=== PATIENT | female | born 1935 | race Caucasian/White ===

== ENCOUNTER 2017-03-02 17:21 | Emergency (ER) | payer OTHER ==
[~2017-03-02] VITALS: Ht 165.1 cm; Wt 72.6 kg
--- NOTE | ~2017-03-02 | EKG ---
[address] [address] ELECTROCARDIOGRAM REPORT Name: HERMAN BECK Room #: DEP Aleks#: [id number] Admission: 03/02/17 Attend Phys: Discharge: 03/02/17 Date of : 35 Report #: [id number] THIS REPORT FOR: //name// [facility] ED Test Date: 2017-03-02 Test Time: 17:29:05 Pat Name: HERMAN BECK Department: Room: Gender: F [employer]: DANIELITO : 1935 Requested By: Phi Rai Order Number: [id number] MD: Jonel Sanders Measurements Intervals [place] Rate: 83 P: WI: QRS: 59 QRSD: 90 T: 31 QT: 374 QTc: 440 Interpretive Statements Normal sinus rhythm No previous ECG available for comparison Electronically Signed On 03-03-2017 7:57:28 CDT by Jonel Sanders [email or web address] <ELECTRONICALLY SIGNED> By: Jonel Sanders MD, [facility] 03/03/17 0757 1729 1729 Jonel Sanders MD, FACC /EPI
[2017-03-02] MEDS ORDERED: ASPIR 8181 MG PO (17:29)
[2017-03-02] MEDS ORDERED: DEPAKOTE 250MG250 M1 PO (17:29)
[2017-03-02] MEDS ORDERED: ZESTRIL20 MG PO (17:29)
[2017-03-02] MEDS ORDERED: AMLODIPINE BESY10 MG PO (17:29)
[2017-03-02] MEDS ORDERED: NAMENDA 10 MG T10 MG PO (17:30)
[2017-03-02] MEDS ORDERED: VITAMIN D 5050000 I1 PO (17:31)
[2017-03-02] MEDS ORDERED: ZOLOFT50 MG PO (17:31)
[2017-03-02 17:40] LABS: ABSOLUTE NEUTROPHILS 5.3 thou/uL (1.4-8.2); BASOPHILS 0.4 % (0.0-2.0); HEMATOCRIT 41.3 % (37.0-47.0); HEMOGLOBIN 13.8 gm/dL (12.0-15.0); LYMPHOCYTES 16.6 % (24.0-44.0); MCH 31.5 pg (26.0-34.0); MCHC 33.4 g/dL (28.0-37.0); MCV 94.3 fL (80.0-100.0); MONOCYTES 10.2 % (1.0-8.0); PLATELET COUNT 108 thou/uL (150-400); POLYS 70.8 % (36.0-66.0); RBC 4.37 mil/uL (4.20-5.00); RDW 13.6 % (10.5-14.5); WBC 7.5 thou/uL (4.0-11.0)
[2017-03-02 17:41] LABS: MANUAL DIFF NO
[2017-03-02 17:45] LABS: ANION GAP 7 mmol/L (7-16); BUN 19 mg/dL (7-18); CALCIUM 9.3 mg/dL (8.5-10.1); CHLORIDE 106 mmol/L (98-107); CO2 28 mmol/L (21-32); CREATININE 0.9 mg/dL (0.6-1.0); GLUCOSE 105 mg/dL (74-106); POTASSIUM 4.2 mmol/L (3.5-5.1); SODIUM 141 mmol/L (136-145)
[2017-03-02 17:52] LABS: ALBUMIN 3.4 g/dL (3.4-5.0); ALKALINE PHOSPHATASE 59 U/L (46-116); DIRECT BILIRUBIN 0.1 mg/dL (<0.1-0.3); SGOT 35 U/L (15-37); SGPT 35 U/L (30-65); TOTAL BILIRUBIN 0.6 mg/dL (<0.1-1.0); TOTAL PROTEIN 6.4 g/dL (6.4-8.2); TROPONIN-I < 0.04 ng/mL (<0.04-0.07)
[2017-03-02 17:57] LABS: URINE BILIRUBIN NEGATIVE (Negative); URINE BLOOD TRACE (Negative); URINE COLOR YELLOW; URINE GLUCOSE-RANDOM* NEGATIVE (Negative); URINE KETONES 1+ (Negative); URINE NITRITE POSITIVE (Negative); URINE PROTEIN (DIPSTICK) TRACE (Negative); URINE UROBILINOGEN 0.2 E.U./dl (0.2-1.0)
[2017-03-02 18:09] LABS: CASTS None Seen /LPF (None Seen); SQUAMOUS 0-3 Few /LPF (0-3); URINE WBC >25 Many /HPF (0-5)
[2017-03-02 18:10] LABS: BACTERIA >30 Many /HPF (None Seen); CRYSTALS None Seen /LPF (None Seen); URINE RBC 0-2 Rare /HPF (0-2); WBC CLUMPS Few (None Seen)
[2017-03-02] MEDS ORDERED: CIPRO500 MG PO (18:16)
[2017-03-02 20:34] VITALS: BP 141/68
== END 2017-03-02 20:36 | disposition home or self-care (01) ==
LOC: ER 17:21
PROVIDERS: Nurse Practitioner
DX: N39.0 Urinary tract infection, site not specified (principal); I10 Essential (primary) hypertension; F03.90 Unspecified dementia, unspecified severity, without behavioral disturbance, psychotic disturbance, mood disturbance, and anxiety

== ENCOUNTER 2018-05-07 12:35 | Inpatient (IN) | payer OTHER ==
[~2018-05-07] VITALS: Ht 165.1 cm; Wt 79.4 kg
--- NOTE | ~2018-05-07 | EKG ---
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
[2018-05-07 12:35] VITALS: BP 121/67
[~2018-05-07 12:35] MED LIST: AMLODIPINE BESY10 MG PO; ASPIR 8181 MG PO; ATIVAN0.5 M1 PO; BUSPIRONE HCL10 MG PO; CALCIUM 600 +1 EAC1 PO; CIPRO500 MG PO; DEPAKOTE 250MG250 M1 PO; DEPAKOTE ER500 MG PO; NAMENDA 10 MG T10 MG PO; REMERON15 MG PO; TRAMADOL 50 MG50 MG PO; VITAMIN D 5050000 I1 PO; ZESTRIL20 MG PO; ZOLOFT50 MG PO
[2018-05-07 13:28] LABS: BASOPHILS 0.2 % (0.0-2.0); EOSINOPHILS 0.5 % (0.0-3.0); HEMATOCRIT 43.9 % (37.0-47.0); HEMOGLOBIN 14.7 gm/dL (12.0-15.0); MCH 32.6 pg (26.0-34.0); MCHC 33.4 g/dL (28.0-37.0); MCV 97.5 fL (80.0-100.0); PLATELET COUNT 160 thou/uL (150-400); POLYS 81.3 % (36.0-66.0); RBC 4.51 mil/uL (4.20-5.00); RDW 13.1 % (10.5-14.5); WBC 9.8 thou/uL (4.0-11.0)
[2018-05-07 13:35] LABS: CALCIUM 9.6 mg/dL (8.5-10.1); POTASSIUM 4.8 mmol/L (3.5-5.1)
[2018-05-07 14:23] LABS: URINE BLOOD NEGATIVE (Negative); URINE CLARITY CLEAR; URINE COLOR YELLOW; URINE GLUCOSE-RANDOM* NEGATIVE (Negative); URINE KETONES NEGATIVE (Negative); URINE LEUKOCYTES-REFLEX NEGATIVE (Negative); URINE NITRITE-REFLEX NEGATIVE (Negative); URINE PROTEIN (DIPSTICK) NEGATIVE (Negative); URINE SPECIFIC GRAVITY >= 1.030 (1.005-1.035); URINE UROBILINOGEN 0.2 E.U./dl (0.2-1.0)
[2018-05-07 14:25] LABS: ICTOTEST (BILI CONFIRMATORY) Negative (Negative); URINE BILIRUBIN NEGATIVE (Negative)
[2018-05-07 14:31] LABS: AMP/METHAMP Negative (Negative); BARBITURATES Negative (Negative); BENZODIAZEPINES Negative (Negative); COCAINE Negative (Negative); METHADONE Negative (Negative); OPIATES POSITIVE (Negative); PCP Negative (Negative)
[2018-05-07 15:31] VITALS: BP 103/49
[2018-05-07 18:03] VITALS: BP 107/56
[2018-05-07 18:26] VITALS: BP 121/85
[2018-05-07 20:40] VITALS: BP 149/78
[2018-05-07 23:45] VITALS: BP 150/72
[2018-05-08 04:34] VITALS: BP 138/60
[2018-05-08 06:17] LABS: BASOPHILS 0.2 % (0.0-2.0); HEMATOCRIT 44.1 % (37.0-47.0); HEMOGLOBIN 14.5 gm/dL (12.0-15.0); LYMPHOCYTES 4.1 % (24.0-44.0); MCH 32.1 pg (26.0-34.0); MCHC 32.8 g/dL (28.0-37.0); MCV 97.8 fL (80.0-100.0); MONOCYTES 8.9 % (1.0-8.0); PLATELET COUNT 140 thou/uL (150-400); POLYS 86.8 % (36.0-66.0); RBC 4.51 mil/uL (4.20-5.00); RDW 13.1 % (10.5-14.5); WBC 17.3 thou/uL (4.0-11.0)
[2018-05-08 08:41] VITALS: BP 127/64
[2018-05-08 17:49] VITALS: BP 135/84
[2018-05-08 20:30] VITALS: BP 89/67
[2018-05-09 04:30] VITALS: BP 132/52
[2018-05-09 05:27] LABS: HEMATOCRIT 38.8 % (37.0-47.0); MCH 32.7 pg (26.0-34.0); MCHC 33.5 g/dL (28.0-37.0); MCV 97.6 fL (80.0-100.0); RBC 3.97 mil/uL (4.20-5.00); RDW 13.1 % (10.5-14.5); WBC 11.4 thou/uL (4.0-11.0)
[2018-05-09 05:30] LABS: CALCIUM 8.7 mg/dL (8.5-10.1); POTASSIUM 4.4 mmol/L (3.5-5.1)
[2018-05-09 05:34] LABS: CREATININE 0.9 mg/dL (0.6-1.0)
[2018-05-09 15:13] VITALS: BP 133/49
[2018-05-09 20:15] VITALS: BP 130/103
[2018-05-09 23:38] VITALS: BP 143/61
[2018-05-10 04:09] LABS: CALCIUM 8.9 mg/dL (8.5-10.1); CREATININE 0.7 mg/dL (0.6-1.0)
[2018-05-10 04:43] LABS: HEMATOCRIT 38.9 % (37.0-47.0); HEMOGLOBIN 13.2 gm/dL (12.0-15.0); MCH 32.7 pg (26.0-34.0); MCHC 33.9 g/dL (28.0-37.0); MCV 96.6 fL (80.0-100.0); RBC 4.02 mil/uL (4.20-5.00); RDW 12.3 % (10.5-14.5); WBC 10.2 thou/uL (4.0-11.0)
[2018-05-10 04:57] VITALS: BP 127/73
[2018-05-10 07:35] VITALS: BP 151/90
[2018-05-10 16:42] VITALS: BP 119/56
[2018-05-10 19:35] VITALS: BP 129/59
[2018-05-11 04:52] VITALS: BP 144/59
[2018-05-11 08:00] VITALS: BP 141/66
[2018-05-11] MEDS ORDERED: AUGMENTIN 875-1 EACH PO (08:20)
[2018-05-11] MEDS ORDERED: ALBUTEROL2.5 MG/0.5 INH (08:21)
[2018-05-11] MEDS ORDERED: DEPAKOTE SPRIN125 MG PO (08:24)
== END 2018-05-11 14:00 | DRG 871 ==
LOC: ER 12:35 → EROBS 14:53 → 4E 14:53
PROVIDERS: Emergency Medicine; Internal Medicine
DX: A41.9 Sepsis, unspecified organism (principal); G93.41 Metabolic encephalopathy; J18.9 Pneumonia, unspecified organism; F03.91 Unspecified dementia, unspecified severity, with behavioral disturbance; I10 Essential (primary) hypertension; T40.605A Adverse effect of unspecified narcotics, initial encounter; F32.9 Major depressive disorder, single episode, unspecified; E86.9 Volume depletion, unspecified; R13.12 Dysphagia, oropharyngeal phase; F39 Unspecified mood [affective] disorder; Z79.82 Long term (current) use of aspirin; Z79.899 Other long term (current) drug therapy
CPT/HCPCS: 10183

== ENCOUNTER 2018-06-29 17:54 | Inpatient (IN) | payer OTHER ==
[~2018-06-29] VITALS: Ht 165.1 cm; Wt 73.3 kg
--- NOTE | ~2018-06-29 | EKG ---
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[facility] : 1935 Requested By: Tish Hicks Order Number: [id number] MD: Jonel Sanders Measurements Intervals [place] Rate: 61 P: 78 GA: 180 QRS: 56 QRSD: 91 T: 30 QT: 423 QTc: 426 Interpretive Statements Sinus rhythm Low voltage, precordial leads Compared to ECG 05/07/2018 12:11:21 No significant change was found Electronically Signed On 06-30-2018 8:33:04 CDT by Jonel Sanders [email or web address] <ELECTRONICALLY SIGNED> By: Jonel Sanders MD, [facility] 06/30/18 0833 04 04 Jonel Sanders MD, [facility] /EPI
[~2018-06-29 17:54] MED LIST changes: +ALBUTEROL2.5 MG/0.5 INH; +AUGMENTIN 875-1 EACH PO; +DEPAKOTE SPRIN125 MG PO
[2018-06-29 17:57] VITALS: BP 175/72
[2018-06-29 18:10] LABS: BASOPHILS 0.4 % (0.0-2.0); EOSINOPHILS 1.9 % (0.0-3.0); HEMATOCRIT 43.6 % (37.0-47.0); LYMPHOCYTES 26.5 % (24.0-44.0); MCH 32.9 pg (26.0-34.0); MCHC 34.4 g/dL (28.0-37.0); MCV 95.7 fL (80.0-100.0); MONOCYTES 8.7 % (1.0-8.0); PLATELET COUNT 130 thou/uL (150-400); POLYS 62.5 % (36.0-66.0); RBC 4.55 mil/uL (4.20-5.00); WBC 6.4 thou/uL (4.0-11.0)
[2018-06-29 18:14] LABS: ANION GAP 5 mmol/L (7-16); BUN 18 mg/dL (7-18); CALCIUM 9.3 mg/dL (8.5-10.1); CHLORIDE 107 mmol/L (98-107); CO2 28 mmol/L (21-32); GLUCOSE 141 mg/dL (74-106); POTASSIUM 4.3 mmol/L (3.5-5.1); SODIUM 140 mmol/L (136-145)
[2018-06-29 18:23] LABS: TROPONIN-I <0.06 ng/mL (<0.06)
[2018-06-29 18:39] LABS: URINE BILIRUBIN NEGATIVE (Negative); URINE BLOOD NEGATIVE (Negative); URINE CLARITY CLEAR; URINE COLOR YELLOW; URINE GLUCOSE-RANDOM* NEGATIVE (Negative); URINE KETONES NEGATIVE (Negative); URINE LEUKOCYTES 1+ (Negative); URINE NITRITE POSITIVE (Negative); URINE PROTEIN (DIPSTICK) NEGATIVE (Negative); URINE SPECIFIC GRAVITY 1.015 (1.005-1.035); URINE UROBILINOGEN 0.2 E.U./dl (0.2-1.0)
[2018-06-29 18:49] LABS: CASTS None Seen /LPF (None Seen); CRYSTALS None Seen /LPF (None Seen); SQUAMOUS 0-3 Few /LPF (0-3)
[2018-06-29 18:50] LABS: BACTERIA >30 Many /HPF (None Seen); URINE RBC None Seen /HPF (0-2)
[2018-06-29] MEDS ORDERED: NYAMYC15 GM TOP (19:22)
[2018-06-29 20:14] VITALS: BP 156/57
[2018-06-29 20:45] VITALS: BP 138/95
[2018-06-30 05:10] VITALS: BP 142/75
[2018-06-30] MEDS ORDERED: DEPAKOTE 250MG250 M1 PO (09:54)
[2018-06-30] MEDS ORDERED: CEFUROXIME250 MG PO (09:54)
== END 2018-06-30 14:04 | DRG 312 ==
LOC: ER 17:54 → 4E 18:46 → EROBS 18:46 → 4E 21:08
PROVIDERS: Emergency Medicine
DX: R55 Syncope and collapse (principal); N39.0 Urinary tract infection, site not specified; F03.91 Unspecified dementia, unspecified severity, with behavioral disturbance; I10 Essential (primary) hypertension; F32.9 Major depressive disorder, single episode, unspecified; F39 Unspecified mood [affective] disorder; Z79.82 Long term (current) use of aspirin; Z79.899 Other long term (current) drug therapy
CPT/HCPCS: 10183

== ENCOUNTER 2019-08-24 01:32 | Inpatient (IN) | payer OTHER ==
[~2019-08-24] VITALS: Ht 152.4 cm; Wt 69.8 kg
[2019-08-24] VITALS (46 sets, daily range): BP systolic 51–192; BP diastolic 21–96
--- NOTE | ~2019-08-24 | EMS ---
[address] [address] EMS Patient Care Report Name: HERMAN BECK Room #: 170-9 ADM IN M.R.#: [id number] Admission: 08/24/19 Attend Phys: Karen Tomas MD Discharge: Date of : 35 Report #: [id number] THIS REPORT FOR: //name// Report Transmitted: 08/24/2019 03:48 EMS Care Summary [place], [place]/[facility] Incident [id number] @ 08/24/2019 01:01 Incident Location [address] [place] [address] Patient HERMAN BECK Female, 84 Years [id number] Patient Address Patient History Dementia,Hypertension,Depression,Anxiety, Patient Allergies No known allergies, Patient Medications Aspirin, Lisinopril, Namenda, Amlodipine, Depakote, Zoloft, Albuterol, Mirtazapine, Tramadol, Chief Complaint HEAD PAIN Disposition Transported No Lights/[place] Reason Falls Transported To [facility] Narrative PT FOUND LYING ON FLOOR. [facility] ALSO RESPONDED. STAFF STATES THEY HEARD A LOUD NOISE AND CAME IN TO FIND PT ON FLOOR. PT C/O APPROX 2 INCH HEMATOMA TO R FOREHEAD AND MOUTH PAIN. PT DENIES OTHER COMPLAINTS. TRANSPORTED WITHOUT INCIDENT. NO OTHER INJURIES NOTED. [address] [address] EMS Patient Care Report Name: HERMAN BECK Room #: 170-9 ADM IN .R.#: [id number] Admission: 08/24/19 Attend Phys: Karen Tomas MD Discharge: Date of : 35 Report #: [id number] Initial Vitals @01:17P: 76,R: 18,BP: 167/110,Pain: 6/10,GCS: 14,CO: 0,SpO2: 96,Revised Trauma: 12, Assessments @01:11MENTAL:No Abnormalities,SKIN:No Abnormalities,HEENT:Head/Face: Swelling,LUNG SOUNDS:ABDOMEN:PELVIS//GI:EXTREMITIES:PULSE:NEURO:No Abnormalities, Impression Acute Pain, not elsewhere classified Procedures @01:11ALS AssessmentResponse: UnchangedSucceeded Timeline 00:59,Call Received 00:59,Dispatch Notified 01:01,Dispatched 01:02,En Route 01:08,On Scene 01:11,At Patient 01:11,ALS Assessment,Response: UnchangedSucceeded, 01:16,Depart Scene 01:17,BP: 167/110 M,PULSE: 76,RR: 18 R,SPO2: 96 Ox,ETCO2: ,BG: ,PAIN: 6,GCS: 14, 01:26,At Destination 01:47,Call Closed Disclaimer v1.1 Copyright 2019 [employer] This EMS Care Summary contains data elements from the applicable legal record (which may be displayed differently). It is designed to provide pertinent information for the following purposes: continuity of care, clinical quality, and state data reporting. The complete legal record is available to ED staff and administrators of the receiving hospital in [facility]'s Patient Tracker. All data is provided "as is."
[~2019-08-24 01:32] MED LIST changes: -AMLODIPINE BESY10 MG PO; +CEFUROXIME250 MG PO; +LISINOPRIL10 MG PO; +NORVASC5 MG PO; +NYAMYC15 GM TOP; -ZESTRIL20 MG PO
--- NOTE | 2019-08-24 04:47 | NUR ---
COLE OF DEEPTHI BLUE RN UPDATED ON PT'S ADMISSION STATUS. SHE STATES THAT SHE INFORMED DAUGHTER OF TRANSFER TO OUR ED AND WILL CALL HER AGAIN WITH AN UPDATE PER HER DAUGHTERS REQUEST.
[2019-08-24 05:14] LABS: HEMATOCRIT 42.4 % (37.0-47.0); HEMOGLOBIN 14.3 gm/dL (12.0-15.0); MCH 31.7 pg (26.0-34.0); MCHC 33.7 g/dL (28.0-37.0); MCV 94.1 fL (80.0-100.0); RBC 4.5 mil/uL (4.20-5.00); RDW 12.8 % (10.5-14.5)
--- NOTE | 2019-08-24 05:15 | NUR ---
SPOKE WITH PT'S DAUGHTER, CJ, AND UPDATED ON PLAN OF CARE.
[2019-08-24 05:23] LABS: APTT 27.5 Seconds (24.5-32.8); PROTIME 10.3 Seconds (9.3-11.4)
[2019-08-24] MEDS ORDERED: CALCIUM 600 +1 EAC1 PO (05:25)
[2019-08-24] MEDS ORDERED: MIRTAZAPINE15 M2 PO (05:26)
[2019-08-24 05:31] LABS: ALBUMIN 3.2 g/dL (3.4-5.0); ANION GAP 7 mmol/L (7-16); BUN 17 mg/dL (7-18); CHLORIDE 106 mmol/L (98-107); CO2 29 mmol/L (21-32); CREATININE 0.8 mg/dL (0.6-1.0); DIRECT BILIRUBIN < 0.1 mg/dL (<0.1-0.3); GLUCOSE 142 mg/dL (74-106); POTASSIUM 4.2 mmol/L (3.5-5.1); SGOT 20 U/L (15-37); SGPT 15 U/L (30-65); SODIUM 142 mmol/L (136-145); TOTAL BILIRUBIN 0.4 mg/dL (<0.1-1.0); TOTAL PROTEIN 7.1 g/dL (6.4-8.2)
--- NOTE | 2019-08-24 05:50 | NUR ---
Pt is admit in ICU for Subarachnoid bleed and orbital fx after fall. She is awakes and oriented to name only. Not aware of any situation,place and time. No family with pt. Hx is obtained from [place] records. Unable to complete NIH scale due to hx of dementia and depressive disorder. She refused to coorperate when I assess her. She is follow some simple commands at times. 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 Denies of any pain upon my assessment. NSR on monitor. BP slightly elevate noted. Will notify about BP issue.
--- NOTE | 2019-08-24 06:00 | NUR ---
UNABLE TO PERFORM NIH SCALES. PT REFUSED TO COORPERATE AT THIS TIME.
--- NOTE | 2019-08-24 08:14 | NUR ---
CALL PLACE TO DR.GATAPIA ALVERTO HARMON REGARDING OF BP. WAITING FOR THEM TO CALL BACK AT THIS TIME.
--- NOTE | 2019-08-24 11:55 | NUR ---
CHARGE NURSE ATTEMPTED TO CONSULT PLASTIC SURGERY TO SEE PATIENT TODAY, HOWEVER PHYSICIAN NOT AVAILABLE TO ROUND ON PATIENT TODAY. NURSE TO TALK WITH PHYSICIANS.
--- NOTE | 2019-08-24 15:10 | NUR ---
Consult rec'd to assist with transfer to another [facility] for plastic surgery and opthamology consults. Case discussed with the care team. Pt's dtr Yola aware of recommendation and she does not want [facility] or [facility]. [facility] or [facility]. [facility] and [facility] indicate they can meet the pt's needs. Referral sent to both. Dtr updated at bedside and indicates [facility] is more convient for her as she has limited driving ability. [facility] has not responded back on request. [facility] hospital and [facility] do not offer services needed. Awaiting cm approval at both OP and [facility]. The attending's number was provided and face sheet and clinical faxed. Radiology uploaded to the cloud. Chart copy is ready to be sent with pt and the transfer form and [facility] form are on the chart for completion. Care team updated.
--- NOTE | 2019-08-24 18:44 | NUR ---
CHANGE. PATIENT ALERT BUT FORGETFUL AND CONFUSED. PATIENT DENIES PAIN. PATIENT DISORIENTED AND REORIENTED BY NURSE. ROUNDED AND INTIATED A TRANSFER FOR OPTHAMOLOGY AND PLASTICS. PATIENT DENYING PAIN BUT GRIMMACING AND GUARDING. JOAQUIN PAGED FOR IV PAIN MEDICATION. PATIENT GUARDING LEG. DR NUÑEZ PAGED FOR XRAY. XRAY DONE AND UPLOADED TO [facility] FAMILY CALLED BY HOUSEHOLD ASSISTANT SANDEEP TO BE UPDATED. FAMILY ARRIVED AT BEDSIDE AND EDUCATED ON PLAN OF CARE. Q2 NEURO CHECKS INTIATED. REPORT GIVEN TO SAMSON KESSLER AT [facility]. PATIENT UNABLE TO TRANSFER AT THIS TIME RELATED TO AVAILABILITY OF AMBULANCE. REPORT GIVEN TO RN. PLAN OF CARE IS TO TRANSFER TO [facility] FOR FURTHER EVALUATION.
--- NOTE | 2019-08-24 20:36 | NUR ---
Pt has been transferred to [facility] via [facility], she is in stable condition, a call was placed to the ICU there and also to her daughter Yola. No belongings were noted in the pt room.
== END 2019-08-24 20:30 | disposition short-term general hospital (02) | DRG 65 ==
LOC: ER 01:32 → EROBS 04:31 → ICU 04:31
PROVIDERS: Emergency Medicine; ADMIT Internal Medicine
DX: I60.9 Nontraumatic subarachnoid hemorrhage, unspecified (principal); S02.40EA Zygomatic fracture, right side, initial encounter for closed fracture; S02.81XA Fracture of other specified skull and facial bones, right side, initial encounter for closed fracture; F03.91 Unspecified dementia, unspecified severity, with behavioral disturbance; I10 Essential (primary) hypertension; F32.9 Major depressive disorder, single episode, unspecified; F41.9 Anxiety disorder, unspecified; E55.9 Vitamin D deficiency, unspecified; F39 Unspecified mood [affective] disorder; Z79.899 Other long term (current) drug therapy; W18.39XA Other fall on same level, initial encounter; Y93.89 Activity, other specified; Y92.89 Other specified places as the place of occurrence of the external cause; Y99.8 Other external cause status
CPT/HCPCS: 10078